=== PATIENT | female | born 1990 | race Caucasian/White ===

== ENCOUNTER 2019-03-21 22:37 | Emergency (ER) | payer MEDICAID ==
[~2019-03-21] VITALS: Ht 162.6 cm; Wt 63.6 kg
[~2019-03-21 22:37] MED LIST: FAMO-1 PO; IBUP-1984 PO; NO HOME MEDS; ONDA4TAB59 PO; PROC25SU31 RC; ZOF4T PO
[2019-03-21] MEDS ORDERED: LIDOcaine 0.5% W/epiNEPHrine 1:200,000 50ml vial IJ ONE (23:15)
[2019-03-21] MEDS ORDERED: LIDOcaine Viscous 15ml cup MM PRN (23:15)
[2019-03-21] MEDS ORDERED: LIDOcaine 1% W/epiNEPHrine 1:200,000 10ml vial IJ ONE (23:25)
[2019-03-21] MEDS ORDERED: clindamycin 150mg capsule PO ONE (23:50)
[2019-03-21] MEDS ORDERED: CLIN150C2 PO (23:53)
[2019-03-21] MEDS ORDERED: CHLO473M3 PO (23:53)
[2019-03-21] MEDS ORDERED: L. R1CAP4 PO (23:53)
[2019-03-22 00:02] VITALS: BP 100/68
== END 2019-03-22 00:05 | disposition home or self-care (01) ==
LOC: ER 22:37
DX: K04.7 Periapical abscess without sinus (principal); K08.89 Other specified disorders of teeth and supporting structures; R42 Dizziness and giddiness; R11.0 Nausea; K02.9 Dental caries, unspecified; Z88.1 Allergy status to other antibiotic agents; Z79.899 Other long term (current) drug therapy; Z79.2 Long term (current) use of antibiotics
CPT/HCPCS: 41800; 99283

== ENCOUNTER 2021-12-03 18:08 | Emergency (ER) | payer MEDICAID ==
[~2021-12-03] VITALS: Ht 162.6 cm; Wt 72.7 kg
[~2021-12-03 18:08] MED LIST changes: +CHLO473M3 PO; +L. R1CAP4 PO
[2021-12-03 18:47] VITALS: BP 128/78
[2021-12-03] MEDS ORDERED: HYDROcodone/acetaminophen 5mg/325mg tablet PO ONE (20:20)
[2021-12-03] MEDS ORDERED: clindamycin 150mg capsule PO ONE (20:20)
[2021-12-03] MEDS ORDERED: ondansetron 4mg rapidly disintigrating tab PO ONE (20:20)
[2021-12-03] MEDS ORDERED: CLIN300C54 PO ×2 (20:33→20:36)
[2021-12-03] MEDS ORDERED: HYDR-3964 PO (20:33)
== END 2021-12-03 21:03 | disposition home or self-care (01) ==
LOC: ER 18:09
DX: K08.89 Other specified disorders of teeth and supporting structures (principal); Z91.041 Radiographic dye allergy status
CPT/HCPCS: 99284

== ENCOUNTER 2023-12-03 13:19 | Emergency (ER) | payer MEDICAID ==
[~2023-12-03] VITALS: Ht 162.6 cm; Wt 83.9 kg
[~2023-12-03 13:19] MED LIST changes: +CHLO473M13 PO; -CHLO473M3 PO; +CLIN300C54 PO
[2023-12-03 13:40] LABS: BASOPHILS # (AUTO) 0.1 X10'3 (0-0.2); EOSINOPHILS # (AUTO) 0.1 X10'3 (0-0.9); EOSINOPHILS % (AUTO) 1.9 % (0-6); LYMPHOCYTES # (AUTO) 2.2 X10'3 (1.1-4.8); MEAN CORPUSCULAR HEMOGLOBIN 28.5 PG (27.0-31.0); MEAN CORPUSCULAR HGB CONC 33.3 g/dL (33.0-36.5); MEAN CORPUSCULAR VOLUME 85.5 FL (78-98); MEAN PLATELET VOLUME 7.3 FL (7.4-10.4); MONOCYTES # (AUTO) 0.6 X10'3 (0-0.9); MONOCYTES % (AUTO) 7.8 % (2-12); NEUTROPHILS % (AUTO) 62.3 % (42-75); PLATELET COUNT 399 X10'3 (140-440); RED CELL DISTRIBUTION WIDTH 14.8 % (11.5-14.5)
[2023-12-03 13:44] VITALS: TEMP 98
[2023-12-03 13:51] LABS: ALANINE AMINOTRANSFERASE 19 U/L (12-78); ALBUMIN 3.9 G/DL (3.4-5.0); ALKALINE PHOSPHATASE 75 IU/L (46-116); ANION GAP 9 (8-16); ASPARTATE AMINO TRANSFERASE 11 U/L (10-37); BILIRUBIN,TOTAL 0.5 MG/DL (0.1-1.0); BLOOD UREA NITROGEN 17 MG/DL (7-18); BUN/CREATININE RATIO 20.5 (10.0-20.0); CALCIUM 8.7 MG/DL (8.5-10.1); CHLORIDE 104 MMOL/L (99-107); CREATININE 0.83 MG/DL (0.40-0.90); GLUCOSE 106 MG/DL (70-104); POTASSIUM 3.6 MMOL/L (3.5-5.1); SODIUM 138 MMOL/L (135-145); TOTAL CARBON DIOXIDE 24.6 MMOL/L (24-32); eCRCL 84 ML/MIN; eGFR 80 ML/MIN
[2023-12-03 13:59] LABS: PRO BRAIN NATRIURETIC PEPTIDE < 30 PG/ML (0-125)
[2023-12-03 14:49] VITALS: BP 114/76; PULSE 64; RESP 17; O2SAT 99
== END 2023-12-03 14:52 | disposition home or self-care (01) ==
LOC: ER 13:21
DX: R07.89 Other chest pain (principal); I95.9 Hypotension, unspecified; Z91.041 Radiographic dye allergy status; Z79.899 Other long term (current) drug therapy; Z79.2 Long term (current) use of antibiotics; Z79.1 Long term (current) use of non-steroidal anti-inflammatories (NSAID)
CPT/HCPCS: 36415; 71045; 80053; 83880; 84484; 85025; 93005; 99285